=== PATIENT | female | born 2005 | race Caucasian/White ===

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

== ENCOUNTER 2025-08-23 10:19 | Outpatient (CLI) | payer OTHER, SELFPAY ==
[2025-08-23 10:07] LABS: Abs Immature Grans 0.02 10^3/uL (0.0-0.06); HCT 37.9 % (36.0-46.0); HGB 12.4 g/dL (11.2-15.7); Immature Grans % 0.3 %; MCH 25.9 pg (27.0-33.0); MCHC 32.7 % (32.0-36.0); MCV 79 fL (80-95); MPV 9.4 fL (8.0-11.0); Platelet Count 161 10^3/uL (130-400); RBC 4.78 10^6/uL (3.93-5.22); RDW 13.1 % (11.7-14.6); RDW-SD 37.6 fL; WBC 6.42 10^3/uL (4.4-10.8)
[2025-08-23 11:22] LABS: Cholesterol 182 mg/dL (<200); HDL Cholesterol 52 mg/dL (>40)
[2025-08-23 11:23] LABS: TSH 2.26 uIU/mL (0.55-4.78); Vitamin D 25 Total 38 ng/mL (30-100)
== END 2025-08-23 10:20 | disposition home or self-care (01) ==
LOC: LBO 10:20
PROVIDERS: PCP Pediatrics; Visit Provider Pediatrics
DX: Z00.00 Encounter for general adult medical examination without abnormal findings (principal); G43.909 Migraine, unspecified, not intractable, without status migrainosus
CPT/HCPCS: 36415; 80061; 82306; 84443; 85025